=== PATIENT | male | born 2000 | race Caucasian/White ===

== ENCOUNTER 2023-08-30 14:12 | Emergency (ER) | payer OTHER ==
[2023-08-30] MEDS ORDERED: Naloxone 0.4 MG/ML SDV IVPUSH PRN (14:45)
[2023-08-30] MEDS: Morphine 2 MG/ML SYRINGE IM ONE (14:55)
[2023-08-30] MEDS: Ondansetron 4 MG Tab.DIS PO ONE (14:56)
[2023-08-30] MEDS: Ketorolac 60 MG/2 ML SDV IM ONE (16:22)
== END 2023-08-30 16:25 | disposition home or self-care (01) ==
LOC: JD.ED 14:12
DX: S59.901A Unspecified injury of right elbow, initial encounter (principal); W22.8XXA Striking against or struck by other objects, initial encounter
CPT/HCPCS: 73080; 96372; 99283; J1885; 99284

== ENCOUNTER 2023-09-18 14:42 | Emergency (ER) | payer OTHER | END 2023-09-18 16:55 | disposition home or self-care (01) | LOC: JD.ED 14:42 | DX: G56.21 Lesion of ulnar nerve, right upper limb (principal) | CPT/HCPCS: 73080-26-RT; 73080-RT; 99282; 99283 ==

== ENCOUNTER 2024-04-30 13:54 | Emergency (ER) | payer SELFPAY | END 2024-04-30 14:01 | LOC: JD.ED 13:54 | DX: Z53.21 Procedure and treatment not carried out due to patient leaving prior to being seen by health care provider (principal) ==

== ENCOUNTER 2024-05-14 18:18 | Emergency (ER) | payer BC, OTHER ==
[2024-05-14] MEDS: Sodium Chloride 0.9% 1,000 ML IV SCH (19:21)
[2024-05-14] MEDS: Ketorolac 30 MG/ML SDV IVPUSH ONE (19:32)
[2024-05-14 19:33] LABS: BASOPHILS PERCENT AUTO 0.2 % (0.0-1.0); EOSINOPHILS PERCENT AUTO 0.1 % (0.0-6.0); HEMATOCRIT 43.9 % (42.0-52.0); HEMOGLOBIN 15.2 gm/dl (14.0-18.0); IMMATURE GRAN ABSOLUTE AUTO 0.03 K/mm3 (0.00-0.05); IMMATURE GRAN PERCENT AUTO 0.4 % (0.0-0.4); LYMPHOCYTES ABSOLUTE AUTO 0.9 K/mm3 (1.0-4.8); LYMPHOCYTES PERCENT AUTO 10.6 % (24.0-44.0); MEAN CORPUSCULAR HEMOGLOBIN 29.5 pg (28.0-32.0); MEAN CORPUSCULAR HGB CONC 34.6 g/dl (32.0-36.0); MEAN CORPUSCULAR VOLUME 85.1 fl (83.0-99.0); MEAN PLATELET VOLUME 10.1 fl (9.4-12.4); MONOCYTES ABSOLUTE AUTO 0.9 K/mm3 (0.0-0.8); MONOCYTES PERCENT AUTO 11.1 % (0.0-8.0); NEUTROPHILS ABSOLUTE AUTO 6.2 K/mm3 (1.8-7.7); NEUTROPHILS PERCENT AUTO 77.6 % (41.0-71.0); PLATELET COUNT,PLT 180 K/mm3 (150-400); RED BLOOD CELL COUNT 5.16 M/mm3 (4.52-5.90); WHITE BLOOD CELL COUNT,WBC 8.01 K/mm3 (3.9-11.3)
[2024-05-14 19:51] LABS: ALBUMIN 3.8 g/dl (3.4-5.0); ANION GAP 14.2 (5-15); BILIRUBIN TOTAL 0.7 mg/dL (0.2-1.0); BUN/CREATININE RATIO 11.7 (14-18); CALCIUM 9.4 mg/dL (8.5-10.1); CREATININE 1.2 mg/dL (0.7-1.3); EST CRCL DRUG DOSING (CG) 86.4 mL/min; POTASSIUM,K 3.2 mEq/L (3.5-5.1); PROTEIN TOTAL,TP 7.6 g/dl (6.4-8.2)
[2024-05-14] MEDS: Amoxicillin/Clavulanate K 875-125 MG Tab PO ONE (20:57)
[2024-05-14] MEDS: diphenhydrAMINE 50 MG/ML SDV IVPUSH ONE (21:04)
[2024-05-14] MEDS: Metoclopramide 10 MG/2 ML SDV IVPUSH ONE (21:04)
== END 2024-05-14 21:06 | disposition home or self-care (01) ==
LOC: JD.ED 18:18
DX: J01.90 Acute sinusitis, unspecified (principal); B96.89 Other specified bacterial agents as the cause of diseases classified elsewhere; R50.9 Fever, unspecified; Z79.2 Long term (current) use of antibiotics; Z79.899 Other long term (current) drug therapy
CPT/HCPCS: 36415; 80053; 83690; 85025; 87428-QW; 87651-QW; 96361; 96374; 99284-25; A9270-GY; J1885; J7030